=== PATIENT | male | born 1950 | race African-American/Black ===

== ENCOUNTER 2022-12-04 05:30 | Emergency (ER) | payer MEDICARE, OTHER ==
[~2022-12-04] VITALS: Ht 188 cm; Wt 68.0 kg
[2022-12-04 05:45] VITALS: TEMP 97.2
[2022-12-04 12:03] VITALS: BP 120/67; PULSE 57; RESP 16
== END 2022-12-04 12:04 | disposition home or self-care (01) ==
LOC: EMS 05:31
DX: S30.810A Abrasion of lower back and pelvis, initial encounter (principal); E11.9 Type 2 diabetes mellitus without complications; Z98.890 Other specified postprocedural states; X58.XXXA Exposure to other specified factors, initial encounter; Y93.89 Activity, other specified; Y92.89 Other specified places as the place of occurrence of the external cause; Y99.8 Other external cause status
CPT/HCPCS: 72040; 72072; 99284; Z7502